=== PATIENT | male | born 1975 | race African-American/Black ===

== ENCOUNTER 2016-07-20 12:41 | Inpatient (IN) | payer MEDICAID ==
[~2016-07-20] VITALS: Ht 177.8 cm; Wt 83.2 kg
[~2016-07-20 12:41] MED LIST: BUPR-93 PO; CLON.3 PO; MOME17N NASAL; OLAN15TA2 PO
[2016-07-20] MEDS ORDERED: ZOLPIDEM TARTRATE 10 MG TABLET PO PRN (17:30)
[2016-07-20] MEDS ORDERED: LORazepam 2 MG TABLET PO PRN (17:30)
[2016-07-20] MEDS ORDERED: HALOPERIDOL 5 MG TABLET PO PRN (17:30)
[2016-07-20] MEDS ORDERED: RISP2 PO (17:48)
[2016-07-20 18:20] VITALS: BP 157/74
[2016-07-20] MEDS ORDERED: CLON.2 PO (18:31)
[2016-07-20] MEDS ORDERED: OLAN10TA3 PO (18:31)
[2016-07-20] MEDS ORDERED: PNEUMOCOCCAL VACCINE POLYVALENT 0.5 ML VIAL [PPSV23] IM ONE (18:45)
[2016-07-20] MEDS ORDERED: INFLUENZA VIRUS VACCINE QVS 2016-17 (3YR+)/PF 60 MCG/0.5 ML SYRINGE IM ONE (18:45)
[2016-07-20] MEDS: MOMETASONE FUROATE 50 MCG/SPRAY 17 GM NASAL SPRAY NASAL SCH (21:00)
[2016-07-21] MEDS: ALBUTEROL SULFATE HFA 90 MCG/PUFF 8 GM INHALER IH PRN ×2 (03:16→20:37)
[2016-07-21 06:15] VITALS: BP 123/72
[2016-07-21 07:59] LABS: BASOPHILS # (AUTO) 0.01 K/uL (0.00-0.20); BASOPHILS % (AUTO) 0.1 % (0.0-2.0); EOSINOPHILS % (AUTO) 1.16 % (1.0-6.0); HEMATOCRIT 44.8 % (41-53); HEMOGLOBIN 14.8 g/dL (13.5-17.5); LYMPHOCYTES # (AUTO) 1.4 K/uL (1.0-4.8); LYMPHOCYTES % (AUTO) 15.1 % (22.0-44.0); MEAN CORPUSCULAR HEMOGLOBIN 28.4 pg (26.0-34.0); MEAN CORPUSCULAR HGB CONC 32.9 G/dL (31.0-37.0); MEAN CORPUSCULAR VOLUME 86 fL (80-100); MONOCYTES # (AUTO) 0.4 K/uL (0.1-1.0); MONOCYTES % (AUTO) 4.1 % (2.0-9.0); NEUTROPHILS # (AUTO) 7.2 K/uL (1.8-7.7); NEUTROPHILS % (AUTO) 79.6 % (40.0-70.0); PLATELET COUNT (AUTO) 179 K/uL (150-450); RED BLOOD CELL COUNT(AUTO) 5.21 MIL/uL (4.50-5.90); RED CELL DISTRIBUTION WIDTH 13.6 % (11.5-14.5)
[2016-07-21 08:01] VITALS: BP 146/81
[2016-07-21 08:47] LABS: ALANINE AMINOTRANSFERASE 27 U/L (12-78); ALBUMIN 3.3 g/dL (3.4-5.0); ANION GAP 7 mmol/L (8-16); ASPARTATE AMINOTRANSFERASE 19 U/L (15-37); BILIRUBIN,TOTAL 0.4 mg/dL (0.1-1.0); CALCIUM, TOTAL 8.4 mg/dL (8.8-10.5); CARBON DIOXIDE 27 mmol/L (22-29); CHLORIDE 100 mmol/L (98-107); CHOL/HDL RATIO 2.8 (4.2-7.3); CREATININE 1.12 mg/dL (0.60-1.30); GLOMERULAR FILTR. RATE CALC > 60 mL/min (>60); POTASSIUM 4.3 mmol/L (3.5-5.1); SODIUM SERUM 134 mmol/L (136-145); THYROID STIMULATING HORMONE 1.65 uIU/mL (0.36-3.74); UREA NITROGEN, BLOOD 19 mg/dL (7-18)
[2016-07-21] MEDS: CloNIDine HCL 0.1 MG TABLET PO SCH ×2 (09:29→17:17)
[2016-07-21] MEDS: MOMETASONE FUROATE 50 MCG/SPRAY 17 GM NASAL SPRAY NASAL SCH ×2 (09:29→20:37)
[2016-07-21 09:33] LABS: HEMOGLOBIN A1C 5.9 % (4.5-6.2)
[2016-07-21 17:07] VITALS: BP 148/81
[2016-07-21] MEDS ORDERED: OLANZapine 10 MG TABLET PO SCH (21:00)
[2016-07-22 06:43] VITALS: BP 118/82
[2016-07-22 08:01] VITALS: BP 135/80
[2016-07-22] MEDS: MOMETASONE FUROATE 50 MCG/SPRAY 17 GM NASAL SPRAY NASAL SCH ×2 (09:46→20:28)
[2016-07-22] MEDS: CloNIDine HCL 0.1 MG TABLET PO SCH ×2 (09:46→16:52)
[2016-07-22 16:09] VITALS: BP 137/87
[2016-07-22] MEDS: ALBUTEROL SULFATE HFA 90 MCG/PUFF 8 GM INHALER IH PRN (19:49)
[2016-07-22] MEDS: OLANZapine 7.5 MG TABLET PO SCH (20:29)
[2016-07-23 07:02] VITALS: BP 131/88
[2016-07-23 08:01] VITALS: BP 155/90
[2016-07-23 08:31] LABS: APPEARANCE,URINE CLEAR (CLEAR); GLUCOSE, URINE (UA) NEGATIVE (NEGATIVE); KETONES,URINE NEGATIVE (NEGATIVE); LEUKOCYTE ESTERASE ,URINE NEGATIVE (NEGATIVE); OCCULT BLOOD,URINE NEGATIVE (NEGATIVE); PROTEIN,URINE NEGATIVE (NEGATIVE)
[2016-07-23 08:33] LABS: ADD UA MICROSCOPIC NO
[2016-07-23] MEDS: MOMETASONE FUROATE 50 MCG/SPRAY 17 GM NASAL SPRAY NASAL SCH ×2 (08:54→20:19)
[2016-07-23] MEDS: CloNIDine HCL 0.1 MG TABLET PO SCH ×2 (08:55→16:13)
[2016-07-23] MEDS ORDERED: FLUoxetine HCL 20 MG CAPSULE PO SCH (09:00)
[2016-07-23 16:01] VITALS: BP 135/88
[2016-07-23] MEDS: ALBUTEROL SULFATE HFA 90 MCG/PUFF 8 GM INHALER IH PRN (16:13)
[2016-07-23] MEDS ORDERED: FLUO10CA21 PO (18:41)
[2016-07-23] MEDS ORDERED: ALBU8HFA4 IH (18:42)
[2016-07-23] MEDS: OLANZapine 7.5 MG TABLET PO SCH (20:20)
== END 2016-07-23 20:45 | disposition home or self-care (01) | DRG 750 ==
LOC: B3A 17:25
PROVIDERS: ADMIT Psychiatry & Neurology Psychiatry; ATTEND Psychiatry & Neurology Psychiatry
DX: F25.0 Schizoaffective disorder, bipolar type (principal); F15.20 Other stimulant dependence, uncomplicated; R45.851 Suicidal ideations; I10 Essential (primary) hypertension; J45.909 Unspecified asthma, uncomplicated; J32.9 Chronic sinusitis, unspecified; Z59.0 Homelessness; Z71.51 Drug abuse counseling and surveillance of drug abuser; Z91.14 Patient's other noncompliance with medication regimen; Z28.21 Immunization not carried out because of patient refusal; Z62.819 Personal history of unspecified abuse in childhood; Z83.3 Family history of diabetes mellitus
CPT/HCPCS: 80307; 83036; 84439; 84443; 87081; 90471; J3535